=== PATIENT | female | born 1965 | race Caucasian/White ===

== ENCOUNTER 2017-01-04 00:02 | Emergency (ER) | payer OTHER ==
[2017-01-04 00:10] VITALS: BP 125/94
[2017-01-04] MEDS ORDERED: IBUPROFEN 600 MG TABLET PO ONE (00:25)
--- NOTE | 2017-01-04 00:26 | ER Document Report ---
ED Fall - General Stated Complaint: FALL Time Seen by Provider: 01/04/17 00:20 Mode of Arrival: Stretcher Information source: Patient - HPI Patient complains to provider of: Fall, right leg pain Occurred: Just prior to arrival Where: Home Associated symptoms: None Location of injury/pain: Back, Neck, Lower extremity Quality of pain: Achy Severity: Moderate Pain Level: 4 Notes: Patient is a 51-year-old female who is visiting her [id number] from [place] , who was in the closet of her [id number]'s house when the floor gave way causing her to fall through the floor down to her right hip, she also scratched her right upper back on the cassette case that was lying on the floor, she required assistance getting her leg out of the floor, which caused bruising and abrasions to the lateral portion of the leg, she was able to bear weight after that but is complaining of pain in the right hip and the right foot, she also complains of some pain in the cervical spine which may have been exacerbated when she fell, she denies any loss of consciousness, no nausea or vomiting, patient reports her last tetanus shot was within the past 5 years - Related data Allergies/Adverse Reactions: haloperidol [From Haldol] Adverse Reaction (Verified 01/04/17 00:52) Past Medical History - General Information source: Patient - Social History Smoking Status: Current Every Day Smoker Family History: Reviewed & Not Pertinent Review of Systems - Review of Systems Constitutional: No symptoms reported EENT: No symptoms reported Cardiovascular: No symptoms reported Respiratory: No symptoms reported Gastrointestinal: No symptoms reported Genitourinary: No symptoms reported Female Genitourinary: No symptoms reported Musculoskeletal: See HPI Skin: See HPI Hematologic/Lymphatic: No symptoms reported Neurological/Psychological: No symptoms reported -: Yes All other systems reviewed and negative Physical Exam - Vital signs Vitals: Temp Pulse Resp BP Pulse Ox 97.4 F 58 L 20 125/94 H 95 01/04/17 00:08 01/04/17 00:08 01/04/17 00:08 01/04/17 00:08 01/04/17 00:08 Interpretation: Normal - General General appearance: Appears well, Alert - HEENT Head: Normocephalic, Atraumatic Eyes: Normal Pupils: PERRL - Respiratory Respiratory status: No respiratory distress Chest status: Nontender Breath sounds: Normal Chest palpation: Normal - Cardiovascular Rhythm: Regular Heart sounds: Normal auscultation Murmur: No - Abdominal Inspection: Normal Distension: No distension Bowel sounds: Normal Tenderness: Nontender Organomegaly: No organomegaly - Back Back: Other - 12 cm linear superficial abrasion to the right upper back, no active bleeding, mild tenderness to palpate - Extremities General upper extremity: Normal inspection, Nontender, Normal color, Normal ROM , Normal temperature General lower extremity: Normal ROM, Normal temperature, Normal weight bearing. No: Mello's sign Thigh: Other - On the right lateral thigh are some mild linear abrasions which are superficial in nature, with mild surrounding ecchymosis, full range of motion at the hip and knee joint, distal sensation and motor is intact with 2+ DP pulses Foot: Tender - Tender to palpate over the first and second toes with mild erythema - Neurological Neuro grossly intact: Yes Cognition: Normal Orientation: AAOx4 Neal Coma Scale Eye Opening: Spontaneous Neal Coma Scale Verbal: Oriented Neal Coma Scale Motor: Obeys Commands [place] Coma Scale Total: 15 Speech: Normal Motor strength normal: LUE, RUE, LLE, RLE Sensory: Normal - Psychological Associated symptoms: Normal affect, Normal mood - Skin Skin Temperature: Warm Skin Moisture: Dry Skin Color: Normal Course - Re-evaluation Re-evalutation: 01/04/17 01:47 Patient able to ambulate without difficulty, and imaging findings were discussed with her at bedside which are unremarkable, patient will be discharged with instructions for follow-up and advised to return if symptoms worsen, patient acknowledges treatment with this plan - Vital Signs Vital signs: Temp Pulse Resp BP Pulse Ox 97.4 F 58 L 20 125/94 H 95 01/04/17 00:08 01/04/17 00:08 01/04/17 00:08 01/04/17 00:08 01/04/17 00:08 - Diagnostic Test Radiology reviewed: Image reviewed Discharge - Discharge Clinical Impression: Contusion of right leg Qualifiers: Encounter type: initial encounter Qualified Code(s): S80.11XA - Contusion of right lower leg, initial encounter Abrasion of right leg Qualifiers: Encounter type: initial encounter Qualified Code(s): S80.811A - Abrasion, right lower leg, initial encounter Cervical strain Qualifiers: Encounter type: initial encounter Qualified Code(s): S16.1XXA - Strain of muscle, fascia and tendon at neck level, initial encounter Abrasion of right back wall of thorax Qualifiers: Encounter type: initial encounter Qualified Code(s): S20.411A - Abrasion of right back wall of thorax, initial encounter Condition: Stable Disposition: HOME, SELF-CARE Instructions: Abrasions ([facility]), Muscle Strain ([facility]), Contusion ([facility]) Additional Instructions: Follow up with your primary care provider in one to 2 days. Return to the emergency room immediately if symptoms worsen or any additional concerns. Prescriptions: Ibuprofen [Motrin 600 Mg Tablet] 600 mg PO TID #30 tablet
--- NOTE | 2017-01-04 02:21 | RADIOLOGY REPORT (SQ) ---
EXAM DESCRIPTION: HIP RIGHT AP/LATERAL COMPLETED DATE/TIME: 01/04/2017 1:28 am REASON FOR STUDY: fall COMPARISON: None. NUMBER OF VIEWS: Two views. TECHNIQUE: AP pelvis and additional frog-leg view of the right hip. LIMITATIONS: None. FINDINGS: There is no acute fracture or dislocation. The pelvic ring is intact. The bilateral hip joints are maintained. Degenerative changes in the visualized lower lumbar spine and at the bilatera l sacroiliac joints. The soft tissues are unremarkable. IMPRESSION: No radiographic evidence of acute injury. TECHNICAL DOCUMENTATION: JOB ID: [id number] [place]-[id number] 2010 [employer]- All Rights Reserved
--- NOTE | 2017-01-04 02:26 | RADIOLOGY REPORT (SQ) ---
EXAM DESCRIPTION: CERV SP 4 OR 5 VIEWS COMPLETED DATE/TIME: 01/04/2017 1:28 am REASON FOR STUDY: injury COMPARISON: CT cervical spine 08/15/2008, cervical spine x-ray 12/31/2007. NUMBER OF VIEWS: Five views including obliques. TECHNIQUE: AP, lateral, obliques and odontoid radiographic images acquired of the cervical spine. LIMITATIONS: The lower aspect of C7 vertebral body is obscured by the patient's shoulders on the lat eral view. FINDINGS: MINERALIZATION: Normal. SEGMENTATION: Normal. ALIGNMENT: Normal. VERTEBRAE: Maintained height at the visualized vertebral bodies, the lower aspect of C7 vertebral bod y is obscured on the lateral view. DISCS: Multilevel disc space narrowing with osteophytes. POSTERIOR ELEMENTS: Facet arthropathy is present. FORAMINA: Narrowed at the levels of maximal disc and facet disease. HARDWARE: None in the spine. PARASPINAL SOFT TISSUES: Normal. IMPRESSION: No acute radiographic findings at the visualized cervical spine, the lower aspect of C7 vertebral body is obscured. Multilevel degenerative changes. TECHNICAL DOCUMENTATION: JOB ID: [id number] [id number] [employer]- All Rights Reserved
--- NOTE | 2017-01-04 02:30 | RADIOLOGY REPORT (SQ) ---
EXAM DESCRIPTION: FOOT RIGHT COMPLETE COMPLETED DATE/TIME: 01/04/2017 1:28 am REASON FOR STUDY: injury , fall . Pain at the 1st right toe. COMPARISON: Right foot x-ray 06/06/2010. NUMBER OF VIEWS: Three views. TECHNIQUE: AP, lateral and oblique radiographic images acquired of the right foot. LIMITATIONS: None. FINDINGS: MINERALIZATION: Normal. BONES: No acute fracture or dislocation. Postsurgical and degenerative changes at the 2nd metatarsop halangeal joint. SOFT TISSUES: No soft tissue swelling. IMPRESSION: No radiographic evidence of acute injury. Postsurgical and degenerative changes at the 2nd MTP joint. TECHNICAL DOCUMENTATION: JOB ID: [id number] [id number] 2010 [employer]- All Rights Reserved
== END 2017-01-04 01:59 | disposition home or self-care (01) ==
LOC: ER 00:02
DX: S80.11XA Contusion of right lower leg, initial encounter (principal); S80.811A Abrasion, right lower leg, initial encounter; S16.1XXA Strain of muscle, fascia and tendon at neck level, initial encounter; S20.411A Abrasion of right back wall of thorax, initial encounter; M79.604 Pain in right leg; W13.3XXA Fall through floor, initial encounter; Y92.008 Other place in unspecified non-institutional (private) residence as the place of occurrence of the external cause
CPT/HCPCS: 72050; 99283